=== PATIENT | male | born 1945 ===

== ENCOUNTER 2023-04-26 13:37 | Outpatient (CLI) | payer OTHER | END 2023-04-26 13:38 | disposition home or self-care (01) | LOC: CSHCT 13:37 | PROVIDERS: ATTEND Radiology Radiation Oncology | DX: C34.12 Malignant neoplasm of upper lobe, left bronchus or lung (principal); Z92.3 Personal history of irradiation; R91.1 Solitary pulmonary nodule | CPT/HCPCS: 71260; 82565 ==